=== PATIENT | female | born 1975 | race Caucasian/White ===

== ENCOUNTER 2020-04-30 16:12 | Emergency (ER) | payer BC ==
[~2020-04-30] VITALS: Ht 165.1 cm; Wt 53.6 kg
[2020-04-30 16:50] VITALS: BP 117/67
== END 2020-04-30 17:04 | disposition home or self-care (01) ==
LOC: ER 16:13
DX: R05 Cough (principal); R09.89 Other specified symptoms and signs involving the circulatory and respiratory systems; Z20.828 Contact with and (suspected) exposure to other viral communicable diseases
CPT/HCPCS: 36415; 87635; 99283